=== PATIENT | male | born 2000 | race African-American/Black ===

== ENCOUNTER 2024-01-11 06:28 | Day surgery (SDC) | payer OTHER ==
[~2024-01-11 06:28] MED LIST: DEXAMETHASONE SOD PHOS 4 MG/ML VIAL ONE; LIDOCAINE/PF 2% 5 ML VIAL ONE; ONDANSETRON HCL 4 MG/2 ML VIAL ONE; PROPOFOL 1% 20 ML VIAL IVP ONE; RINGERS SOLUTION,LACTATED 1,000 ML IV ONE; ROCURONIUM BROMIDE 10 MG/ML 5 ML VIAL ONE; SUGAMMADEX SODIUM 200 MG/2 ML VIAL IVP ONE
[2024-01-11] MEDS ORDERED: RINGERS SOLUTION,LACTATED 1,000 ML IV ONE (06:30)
[2024-01-11 07:59] LABS: BASOPHILS % (AUTO) 0.5 % (0.0-2.0); EOSINOPHILS % (AUTO) 6.6 % (1.0-6.0); HEMATOCRIT 43.7 % (41-53); HEMOGLOBIN 14.3 g/dL (13.5-17.5); LYMPHOCYTES # (AUTO) 1.5 K/uL (1.0-4.8); MEAN CORPUSCULAR HEMOGLOBIN 29.1 pg (26.0-34.0); MEAN CORPUSCULAR HGB CONC 32.8 G/dL (31.0-37.0); MEAN CORPUSCULAR VOLUME 89 fL (80-100); MONOCYTES # (AUTO) 0.5 K/uL (0.1-1.0); MONOCYTES % (AUTO) 9.7 % (2.0-9.0); NEUTROPHILS % (AUTO) 55.2 % (40.0-70.0); PLATELET COUNT (AUTO) 201 K/uL (150-450); RED BLOOD CELL COUNT(AUTO) 4.92 MIL/uL (4.50-5.90); RED CELL DISTRIBUTION WIDTH 13.9 % (11.5-14.5); WHITE BLOOD COUNT (AUTO) 5.4 K/uL (4.5-11.0)
[2024-01-11 08:23] LABS: ANION GAP 7 mmol/L (8-16); CALCIUM, TOTAL 9.1 mg/dL (8.8-10.5); CARBON DIOXIDE 29 mmol/L (22-29); CHLORIDE 103 mmol/L (98-107); GLOMERULAR FILTR. RATE CALC > 60 mL/min (>60); GLUCOSE,RANDOM 97 mg/dL (70-110); POTASSIUM 4.2 mmol/L (3.5-5.1); SODIUM SERUM 139 mmol/L (136-145); UREA NITROGEN, BLOOD 18 mg/dL (7-18)
[2024-01-11 08:29] LABS: ALANINE AMINOTRANSFERASE 37 U/L (12-78); ALBUMIN 3.6 g/dL (3.4-5.0); ALKALINE PHOSPHATASE 87 U/L (46-116); ASPARTATE AMINOTRANSFERASE 35 U/L (15-37); BILIRUBIN,TOTAL 0.5 mg/dL (0.1-1.0)
[2024-01-11 08:32] LABS: PROTHROMBIN TIME 10.6 SEC (9.4-11.6)
[2024-01-11] MEDS ORDERED: AMPICILLIN SODIUM 2 GM/NS 100 ML IV ONE (09:55)
[2024-01-11] MEDS ORDERED: TRI115O TP (11:31)
[2024-01-11] MEDS ORDERED: RISP-31 PO (11:31)
== END 2024-01-11 14:35 | disposition home or self-care (01) ==
LOC: SURGERY 06:28
PROVIDERS: ATTEND Dentist General Practice
DX: K05.30 Chronic periodontitis, unspecified (principal); R94.31 Abnormal electrocardiogram [ECG] [EKG]; J45.909 Unspecified asthma, uncomplicated; R05.9 Cough, unspecified; F12.929 Cannabis use, unspecified with intoxication, unspecified
CPT/HCPCS: 41899; 71045; 80053; 85025; 85610; 85730; 36415; 93005; J0290; J2704; J1100; J3490 ×3; J2405; J7120

== ENCOUNTER 2024-08-12 08:10 | Inpatient (IN) | payer OTHER, MEDICAID ==
[~2024-08-12] VITALS: Ht 190.5 cm; Wt 77.1 kg
[~2024-08-12 08:10] MED LIST changes: -DEXAMETHASONE SOD PHOS 4 MG/ML VIAL ONE; -LIDOCAINE/PF 2% 5 ML VIAL ONE; -ONDANSETRON HCL 4 MG/2 ML VIAL ONE; -PROPOFOL 1% 20 ML VIAL IVP ONE; -RINGERS SOLUTION,LACTATED 1,000 ML IV ONE; +RISP-31 PO; -ROCURONIUM BROMIDE 10 MG/ML 5 ML VIAL ONE; -SUGAMMADEX SODIUM 200 MG/2 ML VIAL IVP ONE; +TRI115O TP
[2024-08-12 09:28] LABS: BASOPHILS % (AUTO) 0.4 % (0.0-2.0); EOSINOPHILS % (AUTO) 0.6 % (1.0-6.0); HEMATOCRIT 49.9 % (41-53); LYMPHOCYTES # (AUTO) 1.4 K/uL (1.0-4.8); MEAN CORPUSCULAR HEMOGLOBIN 28.5 pg (26.0-34.0); MEAN CORPUSCULAR HGB CONC 32.1 G/dL (31.0-37.0); MEAN CORPUSCULAR VOLUME 89 fL (80-100); MONOCYTES # (AUTO) 0.6 K/uL (0.1-1.0); NEUTROPHILS # (AUTO) 7.5 K/uL (1.8-7.7); PLATELET COUNT (AUTO) 236 K/uL (150-450); RED BLOOD CELL COUNT(AUTO) 5.63 MIL/uL (4.50-5.90); RED CELL DISTRIBUTION WIDTH 14.2 % (11.5-14.5); WHITE BLOOD COUNT (AUTO) 9.6 K/uL (4.5-11.0)
[2024-08-12 09:31] LABS: ANION GAP 8 mmol/L (8-16); CARBON DIOXIDE 29 mmol/L (22-29); CHLORIDE 104 mmol/L (98-107); CREATININE 1.03 mg/dL (0.60-1.30); GLOMERULAR FILTR. RATE CALC > 60 mL/min (>60); GLUCOSE,RANDOM 71 mg/dL (70-110); POTASSIUM 4.2 mmol/L (3.5-5.1); SODIUM SERUM 141 mmol/L (136-145); UREA NITROGEN, BLOOD 23 mg/dL (7-18)
[2024-08-12 09:42] LABS: ALCOHOL, BLOOD (SERUM) < 3 mg/dL (0-10)
[2024-08-12 09:45] LABS: ALCOHOL, URINE DRUG SCREEN NEGATIVE (NEGATIVE); AMPHET/METH SCREEN,URINE NEGATIVE (NEGATIVE); BARBITURATE SCREEN, URINE NEGATIVE (NEGATIVE); BENZODIAZEPINES SCREEN,URINE NEGATIVE (NEGATIVE); CANNABINOID SCREEN,URINE POSITIVE (NEGATIVE); COCAINE SCREEN,URINE NEGATIVE (NEGATIVE); METHADONE SCREEN, URINE NEGATIVE (NEGATIVE); OPIATE SCREEN,URINE NEGATIVE (NEGATIVE); PHENCYCLIDINE SCREEN,URINE NEGATIVE (NEGATIVE)
[2024-08-12] MEDS ORDERED: LORA-1370 PO (10:13)
[2024-08-12] MEDS ORDERED: CLOB60CR32 TP (10:15)
[2024-08-12] MEDS ORDERED: FLUT15.812 NASAL (10:15)
[2024-08-12 10:24] LABS: COVID AG,FIA SOURCE NASAL SWAB
[2024-08-12 10:44] LABS: SARS-COV2 (COVID) ANTIGEN,FIA Negative (Negative)
[2024-08-12] MEDS ORDERED: MAGNESIUM HYDROXIDE SUSPENSION 30 ML UDCUP PO PRN (11:00)
[2024-08-12] MEDS ORDERED: ACETAMINOPHEN 325 MG TABLET PO PRN (11:00)
[2024-08-12] MEDS ORDERED: TUBERCULIN, PURIFIED PROTEIN DERIVATIVE 5 TU/0.1 ML SYRINGE ID ONE (11:00)
[2024-08-12] MEDS ORDERED: OLANZapine 5 MG RAPDIS TABLET PO PRN (11:00)
[2024-08-12] MEDS ORDERED: MAG HYDROX/ALUMINUM HYD/SIMETH ES 30 ML SUSPENSION UDCUP PO PRN (11:00)
[2024-08-12] MEDS ORDERED: LOPERAMIDE HCL 2 MG CAPSULE PO PRN (11:00)
[2024-08-12] MEDS ORDERED: GuaiFENesin/D-METHORPHAN [SUGAR-FREE] 200-20MG/10 ML SYRUP UDCUP PO PRN (11:00)
[2024-08-12] MEDS ORDERED: HydrOXYzine PAMOATE 50 MG CAPSULE PO PRN (11:00)
[2024-08-12] MEDS ORDERED: PROMETHAZINE HCL 25 MG TABLET PO PRN (11:00)
[2024-08-12] MEDS ORDERED: CLOB15CR41 TP (12:14)
[2024-08-12] MEDS ORDERED: LORA10TA7 PO (12:14)
[2024-08-12] MEDS ORDERED: TRIA15CR49 TP (12:14)
[2024-08-12] MEDS ORDERED: FLUT12AE20 IH (12:14)
[2024-08-12] MEDS ORDERED: ALBU18HF12 IH (12:14)
[2024-08-12 16:10] VITALS: BP 124/72; PULSE 77; RESP 18; TEMP 97.8; O2SAT 98
[2024-08-12] MEDS: THIAMINE 100 MG TABLET PO SCH (16:18)
[2024-08-12 20:18] VITALS: BP 134/96; PULSE 81; RESP 18; TEMP 97.5; O2SAT 96
[2024-08-12] MEDS: ZOLPIDEM TARTRATE 10 MG TABLET PO PRN (21:11)
[2024-08-12] MEDS: DIVALPROEX SODIUM 500 MG ER TABLET PO SCH (21:11)
[2024-08-12] MEDS: LORazepam 2 MG TABLET PO PRN (21:11)
[2024-08-12] MEDS: MELATONIN 5 MG TABLET PO SCH (21:11)
[2024-08-13 08:10] VITALS: BP 111/76; PULSE 72; RESP 15; TEMP 97.9; O2SAT 98
[2024-08-13] MEDS: OMEGA-3/DHA/EPA/FISH OIL 1,000 MG CAPSULE PO SCH (08:20)
[2024-08-13] MEDS: MULTIVITAMINS WITH MINERALS, THERAPEUTIC TABLET PO SCH (08:20)
[2024-08-13] MEDS: FLUoxetine HCL 20 MG CAPSULE PO SCH (08:20)
[2024-08-13] MEDS: FOLIC ACID 1 MG TABLET PO SCH (08:20)
[2024-08-13] MEDS: NALTREXONE HCL 50 MG TABLET PO SCH (08:20)
[2024-08-13 20:11] VITALS: BP 121/70; PULSE 68; RESP 18; TEMP 98; O2SAT 100
[2024-08-13] MEDS: MIRTAZAPINE 15 MG TABLET PO SCH (20:19)
[2024-08-14 08:08] LABS: HEMOGLOBIN A1C 5.4 % (3.8-5.6)
[2024-08-14 08:25] LABS: CHOL/HDL RATIO 2.1 (4.2-7.3); FREE T4 (FREE THYROXINE) 0.77 ng/dL (0.76-1.46); THYROID STIMULATING HORMONE 1.15 uIU/mL (0.36-3.74)
[2024-08-14 08:42] VITALS: RESP 18
[2024-08-14] MEDS ORDERED: MELA5TAB40 PO (14:10)
[2024-08-14] MEDS ORDERED: NALT50TA33 PO (14:10)
[2024-08-14] MEDS ORDERED: OMEG100033 PO (14:10)
[2024-08-14] MEDS ORDERED: MIRT-89 PO (14:10)
[2024-08-14 21:25] VITALS: BP 90/64; PULSE 71; RESP 16; TEMP 97.9; O2SAT 99
[2024-08-15 07:45] VITALS: BP 92/53; PULSE 63; RESP 18; TEMP 98; O2SAT 95
[2024-08-15 10:40] VITALS: BP 126/69; PULSE 75; RESP 17; TEMP 98; O2SAT 95
== END 2024-08-15 11:00 | disposition home or self-care (01) | DRG 885 ==
LOC: EMS 08:11 → B3A 13:41 → B2S 14:16
PROVIDERS: ADMIT Psychiatry & Neurology Psychiatry; ATTEND Psychiatry & Neurology Psychiatry
PROC: GZHZZZZ Group Psychotherapy (ICD-10-PCS; principal; 2024-08-12)
PROC: GZ58ZZZ Individual Psychotherapy, Cognitive-Behavioral (ICD-10-PCS; 2024-08-12)
PROC: GZ56ZZZ Individual Psychotherapy, Supportive (ICD-10-PCS; 2024-08-12)
DX: F33.2 Major depressive disorder, recurrent severe without psychotic features (principal); Z59.00 Homelessness unspecified; Z20.822 Contact with and (suspected) exposure to COVID-19; F17.210 Nicotine dependence, cigarettes, uncomplicated; F41.0 Panic disorder [episodic paroxysmal anxiety]; E16.2 Hypoglycemia, unspecified; F12.90 Cannabis use, unspecified, uncomplicated; Z59.9 Problem related to housing and economic circumstances, unspecified; Z65.3 Problems related to other legal circumstances; Z55.9 Problems related to education and literacy, unspecified; Z63.9 Problem related to primary support group, unspecified; Z91.013 Allergy to seafood
CPT/HCPCS: 80048; 80061; 80307; 83036; 84439; 84443; 85025; 86592; 99285; G0480